=== PATIENT | male | born 1940 | race African-American/Black ===

== ENCOUNTER → 2016-10-21 | Outpatient (CLI) | payer MEDICARE, OTHER ==
[2015-02-23 14:55] VITALS: BP 174/84
[~2016-10-21] MED LIST: ABIR250T PO; ASPI81TA2 PO; CRESTOR5 MG PO; DENO60DI SQ; FISH OIL OMEGA1 EACH PO; FURO-69 PO; GABA-585 PO; GADOBUTROL 10 MMOL/10 ML VIAL IV ONE; LOSA1TAB17 PO; MAGN400C PO; METF100010 PO; NIAC500C6 PO; NIAC500T82 PO; OLME1TAB5 PO; POTA20TA4 PO; PRED-220 PO; PRED5TAB19 PO; SITA50TA PO; TRELSTAR; TROS20TA2 PO; [UNRECOGNIZED DRUG - CODE] MC
--- NOTE | 2016-10-21 14:37 | RAD ---
EXAM: Brain MRI with and without contrast. HISTORY: Meningioma follow-up. TECHNIQUE: Multiplanar, multisequence magnetic resonance imaging of the brain was performed prior to and following the administration of 10 cc Gadavist intravenous contrast. COMPARISON: 10/29/2015 FINDINGS: There is no restricted diffusion to suggest acute or subacute infarction. There is no susceptibility effect to suggest hemorrhage. There is no mass effect or midline shift. There is no hydrocephalus. There are scattered focal areas of signal change within the cerebral white matter, a nonspecific finding likely due to chronic small vessel disease. There is an enhancing dural based lesion along the lateral left sphenoid bone projecting into the the medial left middle cranial fossa which measures 15 mm craniocaudally by 9 mm transversely by 20 mm anteroposteriorly. This surround the portion of the supraclinoid left internal carotid artery without stenosis or decreased flow. There is stable minimal mass effect on the medial left temporal lobe. No additional enhancing lesion is seen. There is mild age-appropriate cerebral volume loss. The orbits and paranasal sinuses are unremarkable. There is fluid within the mastoid air cells. There are normal flow voids within the cerebral vessels. IMPRESSION: 1. 20 x 15 x 9 mm enhancing dural based lesion along the lateral left sphenoid bone projecting into the medial left middle cranial fossa, consistent with a meningioma. The transverse dimension of this lesion appears minimally increased compared to the prior study, a component of which may be due to differences in slice position and measurement technique. There is stable minimal mass effect on the medial temporal lobe and abutment of the supraclinoid left internal carotid artery. 2. Scattered foci of signal change within the cerebral white matter, a nonspecific finding likely due to chronic small vessel disease. Electronically signed by: Rosario Davis MD (10/21/2016 2:33 PM)
== END | disposition home or self-care (01) ==
LOC: MRI 15:53
PROVIDERS: ATTEND Neurological Surgery
DX: D32.0 Benign neoplasm of cerebral meninges (principal); J34.89 Other specified disorders of nose and nasal sinuses; R90.82 White matter disease, unspecified
CPT/HCPCS: 70553; A9585

== ENCOUNTER 2017-11-29 16:09 | Emergency (ER) | payer MEDICARE, OTHER ==
[2017-11-29] MEDS: ONDANSETRON PF 4 MG/2 ML VIAL. IV (17:00)
[2017-11-29 17:06] LABS: ADD MAN DIFF? NO
[2017-11-29 17:17] LABS: BASO % 1 % (0-3); EOS # 0.3 x10^3/uL (0.0-0.7); EOS % 5 % (0-3); HEMATOCRIT 42.3 % (39.0-53.0); HEMOGLOBIN 14.2 g/dL (13.0-17.5); LYMPH # 0.9 x10^3/uL (1.0-4.8); LYMPH % 16 % (24-48); MEAN CORPUSCULAR HEMOGLOBIN 30 pg (25-35); MEAN CORPUSCULAR HGB CONC 34 g/dL (31-37); MEAN CORPUSCULAR VOLUME 91 fL (79-100); MONO # 0.8 x10^3/uL (0.0-1.1); MONO % 13 % (0-9); NEUT % 66 % (31-73); PLATELET COUNT 180 x10^3/uL (140-400); RED BLOOD COUNT 4.66 x10^6/uL (4.30-5.70); RED CELL DISTRIBUTION WIDTH 15.5 % (11.5-14.5); WHITE BLOOD COUNT 6.1 x10^3/uL (4.0-11.0)
[2017-11-29 17:25] LABS: ANION GAP 4 (6-14); BLOOD UREA NITROGEN 10 mg/dL (8-26); BUN/CREATININE RATIO 9 (6-20); CALCIUM 9.5 mg/dL (8.5-10.1); CARBON DIOXIDE 30 mmol/L (21-32); CHLORIDE 106 mmol/L (98-107); CREATININE 1.1 mg/dL (0.7-1.3); GFR 78.7; GLUCOSE 116 mg/dL (70-99); POTASSIUM 3.4 mmol/L (3.5-5.1); SODIUM 140 mmol/L (136-145)
[2017-11-29 17:31] LABS: ALBUMIN/GLOBULIN RATIO 0.8 (1.0-1.7); ALK PHOS 55 U/L (46-116); ALT (SGPT) 24 U/L (16-63); AST (SGOT) 20 U/L (15-37); LIPASE 52 U/L (73-393); TOTAL BILIRUBIN 0.9 mg/dL (0.2-1.0); TOTAL PROTEIN 6.6 g/dL (6.4-8.2)
[2017-11-29 17:33] LABS: TROPONINI < 0.017 ng/mL (0.000-0.055)
[2017-11-29 17:47] LABS: BILIRUBIN,URINE SMALL (NEG); CLARITY,URINE CLEAR; COLOR,URINE AMBER; GLUCOSE,URINE NEGATIVE (NEG); NITRITE,URINE NEGATIVE (NEG); PH,URINE 5.5; PROTEIN,URINE 30 mg/dL (NEG-TRACE)
[2017-11-29 17:55] LABS: AMORPHOUS SEDIMENT,UR PRESENT /HPF; BACTERIA,URINE FEW /HPF (0-FEW); SQUAMOUS EPITHELIAL CELL,UR FEW /LPF
[2017-11-29] MEDS: IOHEXOL 300 MG/ML 100ML VIAL. IV (18:00)
[2017-11-29] MEDS: POTASSIUM CHLORIDE 20 MEQ TABLET.ER. PO (18:53)
== END 2017-11-29 19:41 | disposition home or self-care (01) ==
LOC: ER 19:41
DX: N39.0 Urinary tract infection, site not specified (principal); E11.9 Type 2 diabetes mellitus without complications; I10 Essential (primary) hypertension; E78.00 Pure hypercholesterolemia, unspecified; Z88.8 Allergy status to other drugs, medicaments and biological substances
CPT/HCPCS: 36415; 71045; 74177; 80053; 81001; 83690; 84484; 85025; 93005; 96365; 96375; 99285-25; J0690; J2405; Q9967

== ENCOUNTER 2017-12-20 12:28 | Inpatient (IN) | payer MEDICARE, OTHER ==
[2017-12-20 13:36] LABS: ADD MAN DIFF? NO
[2017-12-20] MEDS: IV NORMAL SALINE 1000ML BAG 1,000 ML IV (13:39)
[2017-12-20] MEDS: ONDANSETRON PF 4 MG/2 ML VIAL. IV (13:39)
[2017-12-20 13:41] LABS: BASO # 0.1 x10^3/uL (0.0-0.2); BASO % 1 % (0-3); EOS # 0.4 x10^3/uL (0.0-0.7); EOS % 5 % (0-3); HEMATOCRIT 41.8 % (39.0-53.0); HEMOGLOBIN 14.2 g/dL (13.0-17.5); LYMPH # 1.1 x10^3/uL (1.0-4.8); LYMPH % 12 % (24-48); MEAN CORPUSCULAR HEMOGLOBIN 30 pg (25-35); MEAN CORPUSCULAR HGB CONC 34 g/dL (31-37); MEAN CORPUSCULAR VOLUME 90 fL (79-100); MONO % 10 % (0-9); NEUT # 6.7 x10^3uL (1.8-7.7); NEUT % 73 % (31-73); PLATELET COUNT 246 x10^3/uL (140-400); RED BLOOD COUNT 4.66 x10^6/uL (4.30-5.70); RED CELL DISTRIBUTION WIDTH 15.9 % (11.5-14.5); WHITE BLOOD COUNT 9.2 x10^3/uL (4.0-11.0)
[2017-12-20 13:49] LABS: INR 1.1 (0.8-1.1); PARTIAL THROMBOPLASTIN TIME 29 SEC (24-38); PROTHROMBIN TIME PATIENT 13.7 SEC (11.7-14.0)
[2017-12-20 13:56] LABS: ALBUMIN/GLOBULIN RATIO 0.8 (1.0-1.7); ALK PHOS 54 U/L (46-116); ALT (SGPT) 16 U/L (16-63); ANION GAP 9 (6-14); AST (SGOT) 18 U/L (15-37); BLOOD UREA NITROGEN 9 mg/dL (8-26); BUN/CREATININE RATIO 10 (6-20); CALCIUM 10.7 mg/dL (8.5-10.1); CARBON DIOXIDE 27 mmol/L (21-32); CHLORIDE 104 mmol/L (98-107); CREATININE 0.9 mg/dL (0.7-1.3); GFR 99.3; GLUCOSE 76 mg/dL (70-99); LIPASE 51 U/L (73-393); SODIUM 140 mmol/L (136-145); TOTAL PROTEIN 6.6 g/dL (6.4-8.2)
[2017-12-20 13:56] LABS: IONIZED CALCIUM 1.27 mmol/L (1.13-1.32)
[2017-12-20 13:59] LABS: POTASSIUM 2.9 mmol/L (3.5-5.1)
[2017-12-20 13:59] LABS: TROPONINI < 0.017 ng/mL (0.000-0.055)
[2017-12-20 14:05] LABS: CKMB MASS 0.8 ng/mL (0.0-3.6); CREATINE KINASE 48 U/L (39-308)
[2017-12-20] MEDS: IOHEXOL 300 MG/ML 100ML VIAL. IV (14:25)
[2017-12-20] MEDS ORDERED: CONTRAST GIVEN. MC (14:30)
[2017-12-20] MEDS ORDERED: POTASSIUM CHLORIDE 20MEQ 50 ML IV ×2 (14:30→14:45)
[2017-12-20 14:31] LABS: MAGNESIUM 1.6 mg/dL (1.8-2.4)
[2017-12-20] MEDS ORDERED: POTASSIUM CHLORIDE 10MEQ 100 ML IV (15:00)
[2017-12-20] MEDS: POTASSIUM CHLORIDE 20 MEQ TABLET.ER. PO (15:04)
[2017-12-20 15:14] LABS: BILIRUBIN,URINE SMALL (NEG); CLARITY,URINE CLEAR; GLUCOSE,URINE NEGATIVE (NEG); NITRITE,URINE NEGATIVE (NEG); PH,URINE 5.5; PROTEIN,URINE NEGATIVE (NEG-TRACE); UROBILINOGEN,URINE 0.2 mg/dL (0.2 mg/dL)
[2017-12-20] MEDS: POTASSIUM CHLORIDE 10MEQ 100 ML IV ×2 (15:17→21:55)
[2017-12-20 15:20] LABS: COLOR,URINE DK YELLOW
[2017-12-20 15:24] LABS: BACTERIA,URINE 0 /HPF (0-FEW); RBC,URINE 0 /HPF (0-2); SQUAMOUS EPITHELIAL CELL,UR FEW /LPF; WBC,URINE OCC /HPF (0-4)
[2017-12-20] MEDS: MAGNESIUM SULFATE 1GM 100 ML IV (15:28)
[2017-12-20] MEDS ORDERED: ONDANSETRON PF 4 MG/2 ML VIAL. IV (15:45)
[2017-12-20] MEDS ORDERED: LABETALOL 20 MG/4 ML DISP.SYRIN. IVP (15:45)
[2017-12-20] MEDS ORDERED: DEXTROSE 50% 25 GM / 50ML DISP.SYRIN. IV (15:45)
[2017-12-20] MEDS: POTASSIUM CL 40MEQ IN 0.9%NACL 1,000 ML IV (15:55)
[2017-12-20] MEDS: LABETALOL 20 MG/4 ML DISP.SYRIN. IVP (15:58)
[2017-12-20] MEDS: METOCLOPRAMIDE ORAL SOLN 10 MG/10 ML SOLUTION. PO ×2 (16:30→21:00)
[2017-12-20] MEDS: predniSONE 10 MG TABLET PO (17:00)
[2017-12-20] MEDS: ASPIRIN CHEWABLE 81 MG TABLET. PO (17:00)
[2017-12-20] MEDS: INSULIN LISPRO 300 UNITS/3 ML INSULN.PEN. SQ (17:00)
[2017-12-20] MEDS: MAGNESIUM OXIDE 400 MG TABLET PO (17:00)
[2017-12-20] MEDS: FUROSEMIDE 20 MG TABLET PO (17:00)
[2017-12-20 17:39] LABS: POC GLUCOSE 74 mg/dL (70-99)
[2017-12-20] MEDS: LOSARTAN POTASSIUM 50 MG TABLET. PO (18:14)
[2017-12-20] MEDS: hydroCHLOROthiazide 25 MG TABLET PO (18:15)
[2017-12-20 20:57] LABS: POC GLUCOSE 88 mg/dL (70-99)
[2017-12-20] MEDS: OXYBUTYNIN CHLORIDE 5 MG TABLET PO (21:54)
[2017-12-20] MEDS: OMEGA-3 FATTY ACIDS/FISH OIL 1,000 MG CAPSULE. PO (21:54)
[2017-12-20] MEDS: NIACIN ER 500 MG TABLET.ER PO (21:54)
[2017-12-20] MEDS: GABAPENTIN 100 MG CAPSULE. PO (21:54)
[2017-12-21] MEDS: POTASSIUM CL 40MEQ IN 0.9%NACL 1,000 ML IV ×4 (01:45→21:58)
[2017-12-21] MEDS: METOCLOPRAMIDE ORAL SOLN 10 MG/10 ML SOLUTION. PO ×4 (07:30→20:58)
[2017-12-21 07:47] LABS: ANION GAP 8 (6-14); BLOOD UREA NITROGEN 6 mg/dL (8-26); CALCIUM 9.4 mg/dL (8.5-10.1); CARBON DIOXIDE 26 mmol/L (21-32); CHLORIDE 109 mmol/L (98-107); CREATININE 0.8 mg/dL (0.7-1.3); GFR 113.7; GLUCOSE 78 mg/dL (70-99); MAGNESIUM 1.8 mg/dL (1.8-2.4); POTASSIUM 3.5 mmol/L (3.5-5.1); SODIUM 143 mmol/L (136-145)
[2017-12-21 07:55] LABS: POC GLUCOSE 74 mg/dL (70-99)
[2017-12-21] MEDS: POTASSIUM CHLORIDE 20 MEQ TABLET.ER. PO (08:00)
[2017-12-21] MEDS: INSULIN LISPRO 300 UNITS/3 ML INSULN.PEN. SQ ×3 (08:00→17:00)
[2017-12-21] MEDS: GABAPENTIN 100 MG CAPSULE. PO ×3 (09:00→20:58)
[2017-12-21] MEDS ORDERED: NON FORMULARY ITEM (Losartan/Hydrochlorothiazide (Losartan-Hctz 100-25 Mg Tab) 1 EACH) PO (09:00)
[2017-12-21] MEDS: OXYBUTYNIN CHLORIDE 5 MG TABLET PO ×3 (09:00→20:58)
[2017-12-21] MEDS: ASPIRIN CHEWABLE 81 MG TABLET. PO (09:00)
[2017-12-21] MEDS: OMEGA-3 FATTY ACIDS/FISH OIL 1,000 MG CAPSULE. PO ×2 (09:00→20:58)
[2017-12-21 11:57] LABS: POC GLUCOSE 72 mg/dL (70-99)
[2017-12-21] MEDS: MAGNESIUM OXIDE 400 MG TABLET PO (13:25)
[2017-12-21] MEDS: predniSONE 10 MG TABLET PO (13:25)
[2017-12-21] MEDS: FUROSEMIDE 20 MG TABLET PO (13:25)
[2017-12-21] MEDS: hydroCHLOROthiazide 25 MG TABLET PO (13:26)
[2017-12-21] MEDS: LOSARTAN POTASSIUM 50 MG TABLET. PO (13:26)
[2017-12-21] MEDS: PANTOPRAZOLE 40 MG TABLET.DR. PO (13:26)
[2017-12-21] MEDS: GADOBUTROL 10 MMOL/10 ML VIAL IV (14:58)
[2017-12-21 16:58] LABS: POC GLUCOSE 106 mg/dL (70-99)
[2017-12-21] MEDS: NIACIN ER 500 MG TABLET.ER PO (20:58)
[2017-12-21 21:53] LABS: POC GLUCOSE 161 mg/dL (70-99)
[2017-12-22 04:34] LABS: HEMATOCRIT 35.5 % (39.0-53.0); HEMOGLOBIN 12.2 g/dL (13.0-17.5); MEAN CORPUSCULAR HEMOGLOBIN 31 pg (25-35); MEAN CORPUSCULAR HGB CONC 34 g/dL (31-37); MEAN CORPUSCULAR VOLUME 90 fL (79-100); PLATELET COUNT 187 x10^3/uL (140-400); RED BLOOD COUNT 3.93 x10^6/uL (4.30-5.70); RED CELL DISTRIBUTION WIDTH 16.1 % (11.5-14.5); WHITE BLOOD COUNT 9.3 x10^3/uL (4.0-11.0)
[2017-12-22 04:49] LABS: ALBUMIN 2.2 g/dL (3.4-5.0); ALBUMIN/GLOBULIN RATIO 0.8 (1.0-1.7); ALK PHOS 45 U/L (46-116); ALT (SGPT) 15 U/L (16-63); ANION GAP 7 (6-14); AST (SGOT) 16 U/L (15-37); BLOOD UREA NITROGEN 6 mg/dL (8-26); BUN/CREATININE RATIO 8 (6-20); CALCIUM 9.1 mg/dL (8.5-10.1); CARBON DIOXIDE 27 mmol/L (21-32); CHLORIDE 107 mmol/L (98-107); CREATININE 0.8 mg/dL (0.7-1.3); GFR 113.7; GLUCOSE 96 mg/dL (70-99); POTASSIUM 3.5 mmol/L (3.5-5.1); SODIUM 141 mmol/L (136-145); TOTAL BILIRUBIN 0.7 mg/dL (0.2-1.0)
[2017-12-22] MEDS: METOCLOPRAMIDE ORAL SOLN 10 MG/10 ML SOLUTION. PO ×4 (07:58→21:18)
[2017-12-22] MEDS: PANTOPRAZOLE 40 MG TABLET.DR. PO (07:59)
[2017-12-22] MEDS: ASPIRIN CHEWABLE 81 MG TABLET. PO (08:00)
[2017-12-22] MEDS: GABAPENTIN 100 MG CAPSULE. PO ×3 (08:00→21:18)
[2017-12-22] MEDS: OXYBUTYNIN CHLORIDE 5 MG TABLET PO ×3 (08:00→21:19)
[2017-12-22] MEDS: INSULIN LISPRO 300 UNITS/3 ML INSULN.PEN. SQ ×3 (08:00→17:00)
[2017-12-22] MEDS: POTASSIUM CHLORIDE 20 MEQ TABLET.ER. PO (08:00)
[2017-12-22] MEDS: predniSONE 10 MG TABLET PO (08:00)
[2017-12-22] MEDS: hydroCHLOROthiazide 25 MG TABLET PO (08:01)
[2017-12-22] MEDS: MAGNESIUM OXIDE 400 MG TABLET PO (08:01)
[2017-12-22] MEDS: OMEGA-3 FATTY ACIDS/FISH OIL 1,000 MG CAPSULE. PO ×2 (08:01→21:18)
[2017-12-22] MEDS: FUROSEMIDE 20 MG TABLET PO (08:01)
[2017-12-22] MEDS: LOSARTAN POTASSIUM 50 MG TABLET. PO (08:02)
[2017-12-22 08:15] LABS: POC GLUCOSE 88 mg/dL (70-99)
[2017-12-22] MEDS: POTASSIUM CL 40MEQ IN 0.9%NACL 1,000 ML IV ×2 (08:41→17:45)
[2017-12-22] MEDS ORDERED: PANTOPRAZOLE 40 MG TABLET.DR. PO (10:00)
[2017-12-22 10:25] LABS: HEMOGLOBIN A1C 6.5 % (4.8-5.6)
[2017-12-22 11:59] LABS: POC GLUCOSE 132 mg/dL (70-99)
[2017-12-22] MEDS: IV RINGERS,LACTATED 1000ML 1,000 ML IV (12:57)
[2017-12-22] MEDS ORDERED: PROPOFOL 20 ML IV (12:59)
[2017-12-22 17:54] LABS: POC GLUCOSE 136 mg/dL (70-99)
[2017-12-22 20:54] LABS: POC GLUCOSE 162 mg/dL (70-99)
[2017-12-22] MEDS: NIACIN ER 500 MG TABLET.ER PO (21:18)
[2017-12-23] MEDS: POTASSIUM CL 40MEQ IN 0.9%NACL 1,000 ML IV ×2 (03:45→13:41)
[2017-12-23] MEDS: ONDANSETRON ODT 4 MG TAB.RAPDIS. PO (03:50)
[2017-12-23] MEDS: INSULIN LISPRO 300 UNITS/3 ML INSULN.PEN. SQ ×2 (08:00→12:00)
[2017-12-23] MEDS: METOCLOPRAMIDE ORAL SOLN 10 MG/10 ML SOLUTION. PO ×2 (08:11→11:30)
[2017-12-23] MEDS: PANTOPRAZOLE 40 MG TABLET.DR. PO (08:11)
[2017-12-23 08:39] LABS: POC GLUCOSE 79 mg/dL (70-99)
[2017-12-23] MEDS: hydroCHLOROthiazide 25 MG TABLET PO (09:55)
[2017-12-23] MEDS: GABAPENTIN 100 MG CAPSULE. PO ×2 (09:55→13:41)
[2017-12-23] MEDS: POTASSIUM CHLORIDE 20 MEQ TABLET.ER. PO (09:56)
[2017-12-23] MEDS: OMEGA-3 FATTY ACIDS/FISH OIL 1,000 MG CAPSULE. PO (09:56)
[2017-12-23] MEDS: MAGNESIUM OXIDE 400 MG TABLET PO (09:56)
[2017-12-23] MEDS: metFORMIN XR 500 MG TAB.ER.24H PO (09:56)
[2017-12-23] MEDS: OXYBUTYNIN CHLORIDE 5 MG TABLET PO ×2 (09:56→13:41)
[2017-12-23] MEDS: FUROSEMIDE 20 MG TABLET PO (09:57)
[2017-12-23] MEDS: predniSONE 10 MG TABLET PO (09:57)
[2017-12-23] MEDS: LOSARTAN POTASSIUM 50 MG TABLET. PO (09:57)
[2017-12-23] MEDS: ASPIRIN CHEWABLE 81 MG TABLET. PO (09:57)
[2017-12-23 13:12] LABS: POC GLUCOSE 139 mg/dL (70-99)
[2018-01-31] MEDS ORDERED: NON FORMULARY ITEM (Denosumab (Prolia) 60 MG) SQ (09:00)
== END 2017-12-23 16:20 | disposition home or self-care (01) | DRG 392 ==
LOC: ER 12:28 → 4 NORTH 16:05
PROC: 0DB78ZX Excision of Stomach, Pylorus, Via Natural or Artificial Opening Endoscopic, Diagnostic (ICD-10-PCS; principal; 2017-12-22 13:02)
DX: K29.70 Gastritis, unspecified, without bleeding (principal); K21.0 Gastro-esophageal reflux disease with esophagitis; E87.6 Hypokalemia; E11.43 Type 2 diabetes mellitus with diabetic autonomic (poly)neuropathy; K31.84 Gastroparesis; E66.01 Morbid (severe) obesity due to excess calories; D32.9 Benign neoplasm of meninges, unspecified; E78.00 Pure hypercholesterolemia, unspecified; I10 Essential (primary) hypertension; E83.42 Hypomagnesemia; C61 Malignant neoplasm of prostate; I89.0 Lymphedema, not elsewhere classified; F32.9 Major depressive disorder, single episode, unspecified; K31.89 Other diseases of stomach and duodenum; Z88.8 Allergy status to other drugs, medicaments and biological substances; Z79.899 Other long term (current) drug therapy; Z79.82 Long term (current) use of aspirin; Z86.011 Personal history of benign neoplasm of the brain; Z85.51 Personal history of malignant neoplasm of bladder; Z85.528 Personal history of other malignant neoplasm of kidney; Z90.79 Acquired absence of other genital organ(s); Z79.84 Long term (current) use of oral hypoglycemic drugs; Z87.891 Personal history of nicotine dependence; Z90.5 Acquired absence of kidney; Z68.34 Body mass index [BMI] 34.0-34.9, adult
CPT/HCPCS: 36415; 70553; 74177; 78264; 80048; 80053; 81001; 82310; 82553; 82962; 83036; 83690; 83735; 84484; 85025; 85027; 85610; 85730; 93005; 96361; 96365; 96375; 97110-GO; 97116-GP; 97162-GP; 97166-GO; 97168-GO; 99285; 99285-25; A9541; A9585; J1815; J2405; J2704; J3475; J3480; J3490; J7030; J7120; J7512; J8597; Q0162; Q9967

== ENCOUNTER → 2020-10-04 | Outpatient (CLI) | payer MEDICARE ==
[2017-12-23 11:00] VITALS: BP 129/75
[~2020-10-04] MED LIST changes: +ASPI-630 PO; -ASPI81TA2 PO; +CIPR500T94 PO; -GADOBUTROL 10 MMOL/10 ML VIAL IV ONE; -LOSA1TAB17 PO; +LOSA1TAB22 PO; +METO10TA81 PO; +OLME1TAB25 PO; -OLME1TAB5 PO; +PANT20TA2 PO
--- NOTE | 2020-10-05 14:55 | CARD ---
MR#: [id number] Date of Study: 10/04/2020 Ordering Physician: BAO YEN, Referring Physician: BAO YEN, Tech: Jackelin Shepard RAHEEL APPROVED REPORT EXAM: Two-dimensional and M-mode echocardiogram with Doppler and color Doppler. Other Information Quality : Good INDICATION Syncope 2D DIMENSIONS RVDd2.6 (2.9-3.5cm)Left Atrium(2D)3.5 (1.6-4.0cm) IVSd2.3 (0.7-1.1cm)Aortic Root(2D)3.2 (2.0-3.7cm) LVDd3.6 (3.9-5.9cm)LVOT Diameter2.2 (1.8-2.4cm) PWd1.0 (0.7-1.1cm)LVDs2.4 (2.5-4.0cm) FS (%) 34.9 %SV36.4 ml LVEF(%)65.1 (>50%) Aortic Valve AoV Peak Benoit.124.7cm/sAoV VTI26.1cm AO Peak GR.6.2mmHgLVOT Peak Benoit.123.8cm/s LVOT VTI 28.27cmAO Mean GR.4mmHg KRYSTAL (VMAX)2.03kz7FJN (VTI)3.96cm2 Mitral Valve MV E Tchyftrp37.7cm/sMV DECEL XDOO087ni MV A Vkpyvgbn40.0cm/sMV EQC50ds E/A Ratio1.0MVA (PHT)2.92cm2 TDI E/Lateral E'6.5E/Medial E'9.8 Tricuspid Valve TR P. Pknvvcdj679fr/sRAP WPMUDTZN1heZx TR Peak Gr.19axMwVQOH73rcPj Pulmonary Vein S1 Sifcqped56.2cm/sD2 Uuredjry76.4cm/s LEFT VENTRICLE The left ventricle is normal size. There is severe assymmetric septal hypertrophy. The left ventricul ar systolic function is normal and the ejection fraction is within normal range. The Ejection Fractio n is 60-65%. There is normal LV segmental wall motion. Transmitral Doppler flow pattern is Grade I-ab normal relaxation pattern. RIGHT VENTRICLE The right ventricle is normal size. The right ventricular systolic function is normal. ATRIA The left atrium size is normal. The right atrium size is normal. The interatrial septum is intact wit h no evidence for an atrial septal defect or patent foramen ovale as noted on 2-D or Doppler imaging. AORTIC VALVE The aortic valve is calcified but opens well. Doppler and Color Flow revealed no significant aortic r egurgitation. There is no significant aortic valvular stenosis. MITRAL VALVE The mitral valve is normal in structure and function. There is no evidence of mitral valve prolapse. There is no mitral valve stenosis. Doppler and Color-flow revealed trace to mild mitral regurgitation . TRICUSPID VALVE The tricuspid valve is normal in structure and function. Doppler and Color Flow revealed trace tricus pid regurgitation. The PA pressure was estimated at 25 mmHg. There is no tricuspid valve stenosis. PULMONIC VALVE The pulmonic valve is not well visualized. Doppler and Color Flow revealed no pulmonic valvular regur gitation. There is no pulmonic valvular stenosis. GREAT VESSELS The aortic root is normal in size. The ascending aorta is normal in size. The IVC is normal in size a nd collapses >50% with inspiration. PERICARDIAL EFFUSION There is no evidence of significant pericardial effusion. Critical Notification Critical Value: No <Conclusion> The left ventricular systolic function is normal and the ejection fraction is within normal range. Th e Ejection Fraction is 60-65%. There is normal LV segmental wall motion. Signed by : Daryl Spaulding, Electronically Approved : 10/05/2020 14:54:48
== END ==
LOC: ECHO 13:29
PROVIDERS: ATTEND Internal Medicine Cardiovascular Disease
DX: I08.0 Rheumatic disorders of both mitral and aortic valves (principal)
CPT/HCPCS: 93306

== ENCOUNTER → 2020-11-23 | Outpatient (CLI) | payer MEDICARE ==
[2017-12-23 11:00] VITALS: BP 129/75
--- NOTE | 2020-11-23 17:27 | RAD ---
MR#: [id number] Date of Study: 11/23/2020 Ordering Physician: YULY SANCHEZ, Referring Physician: YULY SANCHEZ, Tech: Michael James MBA, RDMS, RVT, RDCS, RTR APPROVED REPORT Bilateral Lower Extremity Venous Study for DVT Patient Location: OUT-PATIENT Indications Lower Extremity Edema: Bilateral Vein Imaging (Right) CFV (R): Compressible SFJ (R): Compressible FEM (R): Compressible POP (R): Compressible DFV (R): Compressible PTV (R): Spontaneous GSV (R): Spontaneous Peroneals (R): Spontaneous Vein Imaging (Left) CFV (L): Compressible SFJ (L): Compressible FEM (L): Compressible POP (L): Compressible DFV (L): Compressible PTV (L): Spontaneous GSV (L): Spontaneous Peroneals (L): Spontaneous Doppler Evaluation (Right) CFV (R): Spontaneous POP (R):Spontaneous Doppler Evaluation (Left) CFV (L):Spontaneous POP (L):Spontaneous Findings The bilateral lower extremity deep veins were evaluated for thrombus with color Doppler, spectral and grayscale images. On the right the grayscale images of the common femoral, superficial femoral and popliteal veins do n ot demonstrate any evidence of thrombus and these veins appear to be compressible. The below-knee vei ns were not well visualized but grossly appear to be compressible. Spectral imaging and color Doppler do not reveal any evidence of obstruction to flow with normal respirophasic variation above the knee . Below the knee there is spontaneous flow noted. On the left, the grayscale images of the common femoral, superficial femoral and popliteal veins do n ot demonstrate any evidence of thrombus and these veins appear to be compressible. The below-knee vei ns again were not well visualized but grossly appear to be compressible. Spectral imaging and color D oppler do not reveal any evidence of obstruction to flow with normal respirophasic variation above th e knee. The below-knee veins demonstrate spontaneous flow. Critical Notification Critical Value: No <Conclusion> 1. Negative for DVT in the bilateral lower extremities Signed by : Daryl Spaulding, Electronically Approved : 11/23/2020 17:27:16
--- NOTE | 2020-11-23 17:50 | RAD ---
MR#: [id number] Date of Study: 11/23/2020 Ordering Physician: YULY SANCHEZ, Referring Physician: YULY SANCHEZ, Tech: Michael James MBA, RDMS, RVT, RDCS, RTR APPROVED REPORT Patient Location : OUT-PATIENT Indications Lower Extremity Edema : Bilateral Findings Limited grayscale images of the bilateral saphenofemoral junctions are grossly unremarkable. The right great saphenous vein measures 6.1 mm and does not show any evidence of reflux. The left great saphenous vein measures 5.3 mm and does not show any evidence of reflux. Bilateral lesser saphenous veins did not show any evidence of reflux. Critical Notification Critical Value: No <Conclusion> 1. Negative for reflux in the bilateral greater and lesser saphenous veins. Signed by : Daryl Spaulding, Electronically Approved : 11/23/2020 17:50:05
== END ==
LOC: US 08:36
PROVIDERS: ATTEND Internal Medicine Cardiovascular Disease
DX: M79.89 Other specified soft tissue disorders (principal)
CPT/HCPCS: 93970